=== PATIENT | female | born 2000 | race Caucasian/White ===

== ENCOUNTER 2020-04-09 09:54 | Emergency (ER) | payer OTHER ==
[~2020-04-09] VITALS: Ht 182.9 cm; Wt 113.4 kg
[2020-04-09 10:03] VITALS: BP 125/72
--- NOTE | 2020-04-09 10:06 | NUR ---
BIB MOTHER C/O COUGH, HERNADEZ, BODY ACHE, FEVER ON &OFF, LOSS OF TASTE/SMELL X 5 DAYS.MED HX: DENIES. DENIES N/V/D; SKIN IS PINK/WARM/DRY; AAOX4 WITH EVEN AND STEADY GAIT; LUNGS CLEAR BL; HR EVEN AND REGULAR; PT DENIES ANY FEVER, CP OR SOB AT THIS TIME; PATIENT STATES PAIN OF 8/10 AT THIS TIME. WAIT AT TENT OF1 Addendum: 04/09/20 at 1037 by [email or web address] PT'S SISTER HAD COVID TESTED POSITIVE.
--- NOTE | 2020-04-09 10:11 | NUR ---
COVID YANETH SWAB SENT TO LAB.
--- NOTE | 2020-04-09 10:36 | NUR ---
Patient discharged with v/s stable. Written and verbal after care instructions given and explained. Patient verbalized understanding. Ambulatory with steady gait. All questions addressed prior to discharge. Advised to follow up with PMD.
[2020-04-09 10:37] VITALS: BP 125/72
--- NOTE | 2020-04-09 10:49 | NUR ---
Received +covid results from lab.
== END 2020-04-09 10:36 | disposition home or self-care (01) ==
LOC: MED 09:54
DX: R43.8 Other disturbances of smell and taste (principal); Z20.828 Contact with and (suspected) exposure to other viral communicable diseases
CPT/HCPCS: 99283